=== PATIENT | female | born 1970 | race Caucasian/White ===

== ENCOUNTER 2019-01-05 13:35 | Emergency (ER) | payer OTHER ==
[~2019-01-05] VITALS: Ht 154.9 cm; Wt 101.0 kg
[~2019-01-05 13:35] MED LIST: ACET-141 PO; IBUP-1561 PO
[2019-01-05 13:40] VITALS: Ht 154.9 cm; Wt 101.0 kg
== END 2019-01-05 13:40 | disposition home or self-care (01) ==
LOC: E/R 13:35
DX: S89.91XA Unspecified injury of right lower leg, initial encounter (principal); W19.XXXA Unspecified fall, initial encounter; Y92.9 Unspecified place or not applicable
CPT/HCPCS: 73562